=== PATIENT | female | born 1960 | race American Indian/Alaskan Native ===

== ENCOUNTER 2018-05-17 10:13 | Emergency (ER) | payer SELFPAY ==
[2018-05-17 10:21] VITALS: BP 109/78
[2018-05-17 11:16] LABS: Hematocrit 44.5 % (30.3-42.9); Hemoglobin 14.9 gm/dl (10.1-14.3); Mean Corpuscular HGB Conc 34 % (30-34); Mean Corpuscular Hemoglobin 31 pg (28-32); Mean Corpuscular Volume 91 fl (79-97); Platelet Count 207 K/mm3 (140-440); Red Blood Count 4.88 M/mm3 (3.65-5.03); Red Cell Distribution Width 14.3 % (13.2-15.2)
[2018-05-17] MEDS ORDERED: ANTIVERT PO ONE (11:23)
[2018-05-17] MEDS ORDERED: TORADOL IM ONE (11:26)
[2018-05-17] MEDS ORDERED: ZOFRAN ODT PO ONE (11:27)
--- NOTE | 2018-05-17 11:27 | Emergency Department Report ---
Natalie Doc - Documentation Documentation: 58-year-old female with a past medical history of diabetes presents to the hospital complaining of waking up this morning with a dizzy feeling. Patient was lying in a bed in open her eyes and felt a moving sensation. Spinning sensation and worsens with sitting forward and lying backwards. Patient has had a frontal headache described as 10/10 in intensity has been constipated past 2 days but patient does not appear to be any acute distress. Positive nausea associated with spinning episodes without vomiting, or focal weakness. Patient states she has intermittent bilateral leg cramps ankle edema for the past few days. 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 No meningismus, mild nystagmus with right gaze ekg reviewed orthostatics pending labs pending ua collection pending ct head pending meclizine, toradol, zofran ordered
[2018-05-17 11:38] LABS: Alanine Aminotransferase 20 units/L (7-56); Albumin 4.6 g/dL (3.9-5); BUN/Creatinine Ratio 18; Blood Urea Nitrogen 16 mg/dL (7-17); Calcium 10.2 mg/dL (8.4-10.2); Hemolysis Index 5
--- NOTE | 2018-05-17 12:28 | Cat Scan Report ---
CT scan of head without IV contrast: History: Dizziness. Findings: Ventricles are normal in size and midline in location. No evidence of acute ischemia, hemorrhage or mass. No extra-axial fluid collection. Normal brainstem and cerebellum. Impression: No acute intracranial abnormality.
--- NOTE | 2018-05-17 12:58 | Emergency Department Report ---
ED Dizziness HPI - General Chief Complaint: Dizziness Stated Complaint: DIZZY/FAINT Time Seen by Provider: 05/17/18 11:14 Source: patient Mode of arrival: Ambulatory Limitations: No Limitations - History of Present Illness Initial Comments: 58-year-old female presents with dizziness that started this morning. Patient has a history of diabetes type 2. Patient reports waking up this morning feeling like the room was spinning. She was able to get out of bed and drive to work when she got to work she got very lightheaded and D&C in the bathroom. One of her coworkers aided her to the ground. Patient reported symptoms worse with leaning forward. Patient has had a frontal headache described as 10/10 in intensity has been constipated past 2 days but patient does not appear to be any acute distress. Positive nausea associated with spinning episodes without vomiting, or focal weakness. She is also complaining of left ear pain. Denies fever, chest pain, shortness of breath, vomiting, and visual changes. MD Complaint: dizziness -: This morning Timing: sudden onset Description: "room spinning", lightheadedness, near-syncope History of Same: No History of Trauma: No Severity: moderate Improves With: remaining still Worsens With: movement, position Associated Symptoms: denies other symptoms - Related Data Home Medications Medication Instructions Recorded Confirmed Last Taken Metformin HCl [Fortamet ER] 1,000 mg PO BID 10/20/13 08/18/15 08/18/15 Hydrochlorothiazide [HCTZ] 12.5 mg PO DAILY 08/18/15 08/18/15 08/18/15 Naproxen [Naprosyn TAB] 500 mg PO BID 08/18/15 08/18/15 08/09/15 Previous Rx's Medication Instructions Recorded Last Taken Type Albuterol Sulfate [Proair 90 mcg IH QID PRN #1 aer.[email or web address] 08/18/15 Unknown Rx Respiclick] Fluticasone [Flonase] 1 spray NS BID #1 bottle 08/18/15 Unknown Rx Meclizine [Antivert] 25 mg PO TID PRN #20 tablet 05/17/18 Unknown Rx Ofloxacin 5 ml OP DAILY #1 bottle 05/17/18 Unknown Rx Allergies Allergy/AdvReac Type Severity Reaction Status Date / Time meperidine HCl [From Demerol] Allergy Rash Verified 08/18/15 19:48 Penicillins Allergy Rash Verified 08/18/15 19:48 ED Review of Systems ROS: Stated complaint: DIZZY/FAINT Other details as noted in HPI Constitutional: denies: chills, fever Eyes: denies: eye pain, eye discharge, vision change ENT: ear pain. denies: throat pain, dental pain, hearing loss, epistaxis, congestion (left ear pain) Respiratory: denies: cough, shortness of breath, wheezing Cardiovascular: denies: chest pain, palpitations Gastrointestinal: denies: abdominal pain, nausea, diarrhea Neurological: headache. denies: weakness, paresthesias Psychiatric: denies: anxiety, depression ED Past Medical Hx - Past Medical History Hx Hypertension: No Hx CVA: No Hx Heart Attack/AMI: No Hx Congestive Heart Failure: No Hx Diabetes: Yes (type 2) Hx Deep Vein Thrombosis: No Hx Pulmonary Embolism: No Hx GERD: No Hx Liver Disease: No Hx Renal Disease: No Hx Sickle Cell Disease: No Hx Arthritis: No Hx Headaches / Migraines: No Hx Kidney Stones: No Hx Psychiatric Treatment: No Hx Asthma: No Hx Tuberculosis: No Hx Dementia: No Hx HIV: No - Surgical History Hx Coronary Stent: No Hx Open Heart Surgery: No Hx Pacemaker: No Hx Cholecystectomy: No Hx Appendectomy: No Hx Breast Surgery: No Additional Surgical History: partial hyst. ganglion cyst removal - Social History Smoking Status: Current Every Day Smoker Substance Use Type: None - Medications Home Medications: Home Medications Medication Instructions Recorded Confirmed Last Taken Type Metformin HCl [Fortamet ER] 1,000 mg PO BID 10/20/13 08/18/15 08/18/15 History Albuterol Sulfate [Proair 90 mcg IH QID PRN #1 aer.[email or web address] 08/18/15 Unknown Rx Respiclick] Fluticasone [Flonase] 1 spray NS BID #1 bottle 08/18/15 Unknown Rx Hydrochlorothiazide [HCTZ] 12.5 mg PO DAILY 08/18/15 08/18/15 08/18/15 History Naproxen [Naprosyn TAB] 500 mg PO BID 08/18/15 08/18/15 08/09/15 History Meclizine [Antivert] 25 mg PO TID PRN #20 tablet 05/17/18 Unknown Rx Ofloxacin 5 ml OP DAILY #1 bottle 05/17/18 Unknown Rx ED Physical Exam - General Limitations: No Limitations General appearance: alert, in no apparent distress - Eye Eye exam: Present: nystagmus. Absent: scleral icterus, conjunctival injection, periorbital swelling, periorbital tenderness Pupils: Present: normal accommodation - ENT ENT exam: Present: mucous membranes moist. Absent: normal external ear exam ( erythematous left external ear, tragal tenderness) - Respiratory Respiratory exam: Present: normal lung sounds bilaterally. Absent: respiratory distress - Cardiovascular Cardiovascular Exam: Present: regular rate, normal rhythm. Absent: systolic murmur, diastolic murmur, rubs, gallop - GI/Abdominal GI/Abdominal exam: Present: soft, normal bowel sounds - Neurological Exam Neurological exam: Present: alert, oriented X3 - Psychiatric Psychiatric exam: Present: normal affect, normal mood - Skin Skin exam: Present: warm, dry, intact, normal color. Absent: rash ED Course Vital Signs 05/17/18 10:16 Temperature 97.7 F Pulse Rate 78 Respiratory 18 Rate Blood Pressure 109/78 O2 Sat by Pulse 97 Oximetry ED Medical Decision Making - Lab Data Result diagrams: 05/17/18 10:31 05/17/18 10:31 - Radiology Data Radiology results: report reviewed CT scan of head without IV contrast: History: Dizziness. Findings: Ventricles are normal in size and midline in location. No evidence of acute ischemia, hemorrhage or mass. No extra-axial fluid collection. Normal brainstem and cerebellum. Impression: No acute intracranial abnormality. - Medical Decision Making This is a 58 y.o. female that presents with dizziness and left ear pain that started this morning. Patient is stable and was examined by me and Dr. Perry. Vitals normal. Patient given Toradol 60 mg by mouth, Antivert 50 mg by mouth, and Zofran ODT 4 mg by mouth while in ER. Reevaluation dictation report dizziness improved. Obtained CBC, CMP, magnesium, glucose, and CT of head. All labs unremarkable. CT of head dictated by radiologist. No acute intracranial abnormality. Physical assessment susceptible of otitis externa of left ear. Start ciprodex and antivert. Orthostatics normal. Discharged home in stable condition. Follow up with PCP in 24-72 hours. Critical care attestation.: If time is entered above; I have spent that time in minutes in the direct care of this critically ill patient, excluding procedure time. ED Disposition Clinical Impression: Dizziness, Left ear pain Otitis externa Qualifiers: Otitis externa type: swimmer's ear Chronicity: acute Laterality: left Qualified Code(s): H60.332 - Swimmer's ear, left ear Vertigo, benign paroxysmal Qualifiers: Laterality: left Qualified Code(s): H81.12 - Benign paroxysmal vertigo, left ear Disposition: - TO HOME OR SELFCARE Is pt being admited?: No Does the pt Need Aspirin: No Condition: Stable Instructions: Otitis Externa (ED), Benign Paroxysmal Positional Vertigo (ED), Dizziness (ED) Additional Instructions: Give tylenol or ibuprofen for pain every 6-8 hours. Take antibiotics as prescribed to avoid recurrence of the ear infection. Avoid high altitudes, may worsen the pain during ear infection. If symptoms do not improve within 2 to 3 days, then follow up with primary care provider. Prescriptions: Meclizine [Antivert] 25 mg PO TID PRN #20 tablet PRN Reason: Vertigo Ofloxacin 5 ml OP DAILY #1 bottle Referrals: [facility] [Outside] - 3-5 Days [facility] [Outside] - 3-5 Days Forms: Work/School Release Form(ED) Time of Disposition: 13:39 Print Language: JAPANESE
== END 2018-05-17 13:49 | disposition home or self-care (01) ==
LOC: ED 10:13
DX: H81.12 Benign paroxysmal vertigo, left ear (principal); H60.332 Swimmer's ear, left ear; R51 Headache; F17.200 Nicotine dependence, unspecified, uncomplicated; E11.9 Type 2 diabetes mellitus without complications; Z88.0 Allergy status to penicillin; Z88.6 Allergy status to analgesic agent; Z90.710 Acquired absence of both cervix and uterus
CPT/HCPCS: 36415; 70450; 80053; 82962; 83735; 85027; 93005; 93010; 96372; 99284; J1885; Q0162